=== PATIENT | male | born 1965 | race Caucasian/White ===

== ENCOUNTER 2016-09-27 19:19 | Emergency (ER) | payer MEDICAID, OTHER ==
[2016-09-27 19:28] VITALS: BP 142/91
--- NOTE | 2016-09-27 19:41 | ERNOTE ---
Upper Extremity HPI - General Extremities Pain Location: shoulder: right - pain Time Seen by Provider: 09/27/16 19:34 Source: patient Exam Limitations: no limitations - Immun/Allergies/Home Medications Immunizations: IMMUNIZATION HX Immunizations Up to Date Yes History of Influenza Vaccine No Hx Pneumococcal Vaccination No Allergies/Adverse Reactions: Allergies Allergy/AdvReac Type Severity Reaction Status Date / Time No Known Drug Allergies Allergy Verified 09/27/16 19:29 Home Medications: HOME MEDICATIONS Citalopram Hydrobromide [Citalopram HBr] 40 mg PO DAILY 09/27/16 [Last Taken Unknown] Liraglutide [Victoza 2-Malik] 1.4 mg SQ DAILY 09/27/16 [Last Taken Unknown] Lisinopril [Zestril] 2.5 mg PO DAILY 09/27/16 [Last Taken Unknown] Naproxen [Naprosyn] 500 mg PO BID PRN #20 tablet 09/27/16 [Last Taken Unknown] Omeprazole 20 mg PO DAILY 09/27/16 [Last Taken Unknown] metFORMIN HCL [Glucophage] 1,000 mg PO BIDWM 09/27/16 [Last Taken Unknown] - History of Present Illness Narrative: Here for right shoulder pain for two months. PT has fits of rage where he slams doors and he now has pain in his right shoulder after slamming a door. Review of Systems - Review of Systems Constitutional: Present: no symptoms reported EYE: Present: no symptoms reported ENT: Present: no symptoms reported Respiratory: Present: no symptoms reported Cardiology: Present: no symptoms reported Gastrointestinal/Abdominal: Present: no symptoms reported Genitourinary: Present: no symptoms reported Musculoskeletal: Present: See HPI - Patient's Past Medical History Patient History - Medical: Diabetes Type 2 Patient History - Cardiac/Respiratory: No pertinent hx Patient History - Cancer: No Hx of Cancer Patient History - Surgical Procedures: No surgical history Patient History - Other: None - Social History Living Situations: home Psych History: Hx of Violent Behavior Smoking Status: Never smoker Alcohol Use: rarely Drug Use: none - Immunizations Immunizations Up to Date: Yes Hx Pneumococcal Vaccination: No History of Influenza Vaccine: No Physical Exam - Physical Exam General Appearance: Present: wd/wn, alert, no apparent distress Respiratory: Present: no respiratory distress, normal breath sounds, no accessory muscle use, chest nontender, lungs clear Cardiovascular/Chest: Present: regular rate, rhythm, no murmur, normal peripheral pulses Extremity Exam: Present: other - there appears to be no deformity or step-off on just observing the right shoulder. Patient has pain when he raises his right arm up off of the [place]. I do not see any ecchymoses or deformity. He is tender in the deltoid region. ED Progress - Vital Signs Patient's Vital Signs:: I have reviewed the patient's vital signs. Vital Signs: Vital Signs 09/27/16 19:23 Temperature 36.3 C L Pulse Rate 103 H Respiratory 18 Rate Blood Pressure 142/91 O2 Sat by Pulse 100 Oximetry - X-Ray X-Ray #1 X-Ray: shoulder - Progress/Reassessment Chief Complaint: Shoulder Injury/Pain Plan - Plan Plan: The shoulder x-ray does not reveal an obvious fracture neither does it show a dislocation. I believe this patient has a deltoid bursitis from repeated trauma and slamming things. Departure Clinical Impression: Bursitis of deltoid Qualifiers: Laterality: right Qualified Code(s): M75.51 - Bursitis of right shoulder - Departure Disposition: Home self-care Condition: Good Instructions: Joint Pain Referrals: Rena Cornejo ARNP [Primary Care Provider] - Prescriptions: Naproxen [Naprosyn] 500 mg PO BID PRN #20 tablet PRN Reason: Pain
[2016-09-27] MEDS ORDERED: NAPROXEN SODIUM 550 MG TABLET PO ONE (19:51)
[2016-09-27] MEDS ORDERED: NAPROXEN SODIUM 550 MG TABLET ONE (19:52)
== END 2016-09-27 19:55 | disposition home or self-care (01) ==
LOC: ER 19:19
DX: M75.51 Bursitis of right shoulder (principal); X58.XXXA Exposure to other specified factors, initial encounter; Y93.89 Activity, other specified; Y92.009 Unspecified place in unspecified non-institutional (private) residence as the place of occurrence of the external cause; E11.9 Type 2 diabetes mellitus without complications

== ENCOUNTER 2016-11-15 14:21 | Observation (INO) | payer MEDICAID, OTHER ==
[2016-11-15] MEDS ORDERED: NORMAL SALINE 1,000 ML IV ONE ×4 (15:06→18:59)
[2016-11-15 15:15] LABS: Hematocrit 41.9 % (42.0-52.0); Hemoglobin 15.5 gm/dL (13.5-18.0); Mean Cell Volume 81.7 fl (78-100); Mean Corpuscular Hemoglobin 30.2 pg (27-31); Mean Platelet Volume 9.8 fl (6.0-9.5); Neutrophil # 5.4 K/mm3 (1.3-6.0); Neutrophil % 66.6 % (42-75.0); Platelet Count 260 K/mm3 (150-450); Red Blood Count 5.13 M/mm3 (4.7-6.0); Red Cell Distribution Width 12.3 % (11.5-14.0); White Blood Count 8.1 K/mm3 (4.0-10.5)
[2016-11-15 15:31] LABS: ALT 41 U/L (19-67); AST 43 U/L (0-48); Albumin * 4.1 gm/dl (3.4-5.0); Alkaline Phosphatase * 67 U/L (50-170); Anion Gap 19.4 mmol/L (6.8-13.8); Bilirubin, Total 1.7 mg/dL (0.0-1.1); Blood Urea Nitrogen 24 mg/dL (6-23); Ca. Corrected For Albumin 9.4 mg/dL (8.4-10.2); Calcium * 9.8 mg/dL (7.9-10.9); Carbon Dioxide 24.2 mmol/L (24-32.6); Chloride 95 mmol/L (97-106); Glucose * 319 mg/dL (70-110); Potassium 3.6 mmol/L (3.4-4.6); Sodium 135 mmol/L (132-142); Total Protein 8.3 gm/dL (6.2-8.2)
[2016-11-15 15:33] LABS: Salicylate Less than 2.8 mg/dL (2.8-20.0); Troponin I Less than 0.017 ng/ml (0.00-0.10)
[2016-11-15 16:20] LABS: Urine Bilirubin 1 mg/dl (NEGATIVE); Urine Blood Negative /ul (NEGATIVE); Urine Ketone 15 mg/dL (NEGATIVE); Urine Nitrite Negative (NEGATIVE); Urine Protein 30 mg/dL (NEGATIVE); Urine Specific Gravity >=1.030 SP.GR. (1.005-1.030); Urine Urobilinogen Normal (NORMAL); Urine pH 5.5 pH (5.0-7.0)
[2016-11-15] MEDS ORDERED: LORazepam 2 MG/ML DISP.SYRIN IV ONE ×5 (16:21→20:17)
[2016-11-15] MEDS ORDERED: LORazepam 2 MG/ML DISP.SYRIN ONE ×2 (16:24→18:28)
[2016-11-15] MEDS ORDERED: ACETAMINOPHEN 500 MG TABLET PO ONE (16:27)
[2016-11-15 16:29] LABS: Urine Appearance Clear; Urine Bacteria TRACE; Urine Color Dark Yellow; Urine RBC None Seen /hpf (0-5); Urine WBC 0-5 /hpf (0-5)
[2016-11-15 16:32] LABS: Cocaine Ur Negative (NEGATIVE); Urine Barbiturate Negative (NEGATIVE); Urine Benzodiazepines Negative (NEGATIVE); Urine Opiates Negative (NEGATIVE); Urine PCP Negative (NEGATIVE); Urine THC Negative (NEGATIVE)
[2016-11-15] MEDS ORDERED: diphenhydrAMINE HCL 50 MG/ML VIAL IV ONE ×2 (16:48→17:15)
[2016-11-15] MEDS ORDERED: diphenhydrAMINE HCL 50 MG/ML VIAL ONE ×2 (16:48→17:16)
[2016-11-15 17:23] LABS: CK Total * 1850 U/L (0-259)
--- NOTE | 2016-11-15 18:49 | ERNOTE ---
Medical Problem HPI - Narrative Date of Service: 11/15/16 - General Chief Complaint: General Assessment Time Seen by Provider: 11/15/16 15:02 Source: patient, family Exam Limitations: clinical condition - Immun/Allergies/Home Medications Immunizations: IMMUNIZATION HX Immunizations Up to Date Yes History of Influenza Vaccine No Hx Pneumococcal Vaccination No Allergies/Adverse Reactions: Allergies No Known Drug Allergies Allergy (Verified 09/27/16 19:29) Home Medications: HOME MEDICATIONS Citalopram Hydrobromide [Citalopram HBr] 40 mg PO DAILY 09/27/16 [Last Taken Unknown] Liraglutide [Victoza 2-Malik] 1.4 mg SQ DAILY 09/27/16 [Last Taken Unknown] Lisinopril [Zestril] 2.5 mg PO DAILY 09/27/16 [Last Taken Unknown] Naproxen [Naprosyn] 500 mg PO BID PRN #20 tablet 09/27/16 [Last Taken Unknown] Omeprazole 20 mg PO DAILY 09/27/16 [Last Taken Unknown] metFORMIN HCL [Glucophage] 1,000 mg PO BIDWM 09/27/16 [Last Taken Unknown] - History of Present History Narrative: Patient brought to the ED anxious. Feeling strange. He smoked 50-100 mg of methamphetamine this am. He also smoked methamphetamine yesterday. He does this because he is stressed. 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 He has been feeling poorly since then. Having heart racing generalized weakness, headache and trouble breathing since then. he feels very agitated. No focal weakness. no trauma. Timing: constant, getting worse Modifying Factors - (Improves): Present: other - nothing Modifying Factors - (Worsens): Present: other - nothing Review of Systems - Review of Systems Constitutional: Absent: fever EYE: Present: see HPI Respiratory: Present: shortness of breath Cardiology: Present: chest pain Gastrointestinal/Abdominal: Absent: abdominal pain Genitourinary: Present: decreased urinary output Neurological: Present: headache All Other Systems: All systems neg except as marked - Patient's Past Medical History Patient History - Medical: Diabetes Type 2 Patient History - Cardiac/Respiratory: No pertinent hx Patient History - Cancer: No Hx of Cancer Patient History - Surgical Procedures: No surgical history Patient History - Other: None - Social History Living Situations: home Abuse History: Hx of Substance Use Psych History: Hx of Anxiety, Hx of Depression, Hx of Violent Behavior Smoking Status: Never smoker Have you smoked in the past 12 months: No Do you dip or chew tobacco: No Alcohol Use: rarely Drug Use: meth - Immunizations Immunizations Up to Date: Yes Hx Pneumococcal Vaccination: No History of Influenza Vaccine: No Physical Exam - Physical Exam General Appearance: Present: alert, other - patient agitation, picking at things. jerking but no seizure activity. Head Exam: Present: normal inspection, no evidence of injury Eye Exam: Normal inspection: bilateral, PERRL: bilateral Ears, Nose, Throat: Present: dry mucous membranes. Absent: pharyngeal swelling Neck: Present: normal inspection, supple, other - no meningeal signs Respiratory: Present: no respiratory distress, normal breath sounds, lungs clear Cardiovascular/Chest: Present: normal peripheral pulses, tachycardia Gastrointestinal/Abdominal: Present: normal bowel sounds, nontender, nondistended, soft Back Exam: Present: normal inspection. Absent: CVA tenderness (R), CVA tenderness (L) Extremity Exam: Present: normal inspection, other - no deformity Neurological Exam: Present: other - agitated. No acute focal motor or sensory deficits found Skin Exam: Present: normal color, warm/dry. Absent: skin rash ED Progress - Results and Orders Patient's Lab Results:: I have reviewed the patient's lab results. - Vital Signs Patient's Vital Signs:: I have reviewed the patient's vital signs. Vital Signs: Vital Signs 11/15/16 11/15/16 11/15/16 14:28 15:24 15:52 Temperature 37.5 C 36.4 C L Pulse Rate 130 H 137 H 119 H Respiratory 20 13 22 H Rate Blood Pressure 129/85 110/78 104/66 O2 Sat by Pulse 100 99 100 Oximetry 11/15/16 11/15/16 11/15/16 16:52 17:18 17:46 Temperature Pulse Rate 118 H 112 H 111 H Respiratory 19 24 H 25 H Rate Blood Pressure 103/66 102/60 102/64 O2 Sat by Pulse 95 99 99 Oximetry 11/15/16 18:15 Temperature Pulse Rate 113 H Respiratory 22 H Rate Blood Pressure 94/58 O2 Sat by Pulse 96 Oximetry - EKG EKG read: Interp. by me EKG Comments: Sinus tachycardia rate 132. Non-specific changes, no STEMI. - Progress/Reassessment Chief Complaint: General Assessment Progress Note-Subjective: 11/15/16 18:44 patient received 3L NS. He received 3 mg ativan IV and 50mg benadryl but he still had significant agitation and seemed confused,. This clinically is an agitated delerium, most likely from methamphetamine. Nothing to suggest meningitis or infectious process. Given prolonged observation in the ED he was not improving. Cannot be discharged at this point as he has not returned to normal. D/W Ana Malagon who will admit obs for further evaluation and management. Departure Clinical Impression: Amphetamine intoxication delirium - Departure Disposition: [facility] Condition: Fair
[2016-11-15] MEDS: NORMAL SALINE 1,000 ML IV ONE (20:23)
--- NOTE | 2016-11-15 20:40 | HP ---
Chief Complaint - Chief Complaint Date of Service: 11/15/16 Time of Service: 20:38 Chief Complaint: 'Chest pain, SOB,'. Source of HPI- Pt; unreliable, ERP notes, pts significant other- Stalin. History of Present Illness: Mr. 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 His PMH is significant for: Anxiety, DM II, Erectile dysfunction, GERD & HLD. Pt is unable to provide history because of severe agitation and hallucination, and therefore significant other who goes by Stalin gave most of the information. She states that this morning while at a local grocery store, pt became suddenly SOB , had chest pain and became diaphoretic. He rushed him by personal car from [place] to [facility] ED. 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 She states that last time she saw him abuse drugs was on Tuesday. However, it appears that pt admitted to the ERP when he was still alert at the ED that he smoked about 50- 100mg methamphetamine yesterday and this am. Stalin denies pt complaining of any fevers, n/v,or abdominal pain. At the ED, he was noted to have agitated delirium which did not improve with the Benzodiazepine administration. At the time of physical exam, even though alert, he cannot follow commands, remains in extreme agitation and noted to have hallucinations. Labwork shows he had BUN/CR of 24/1.60 and CK of 1850. He will be admitted for: Rhabdomylosis, DEEPTHI & AMS. - Patient's Past Medical History Patient History - Medical: Diabetes Type 2 Patient History - Cardiac/Respiratory: No pertinent hx Patient History - Cancer: No Hx of Cancer Patient History - Surgical Procedures: No surgical history Patient History - Other: None - Family History Mother Family History - Medical: Other Family History - Cardiac/Respiratory: Other - Social History Living Situations: alone Abuse History: Hx of Substance Use Psych History: Hx of Anxiety, Hx of Depression, Hx of Violent Behavior Smoking Status: Never smoker Have you smoked in the past 12 months: No Do you dip or chew tobacco: No Alcohol Use: rarely Drug Use: meth - Immunizations Immunizations Up to Date: Yes Hx Pneumococcal Vaccination: No History of Influenza Vaccine: No Review Of Systems (GEN) - Review of Systems Additional Comments: ROS unobtainable due to AMS. Immunizations: IMMUNIZATION HX Immunizations Up to Date Yes History of Influenza Vaccine No Hx Pneumococcal Vaccination No Allergies/Adverse Reactions: Allergies Allergy/AdvReac Type Severity Reaction Status Date / Time No Known Drug Allergies Allergy Verified 09/27/16 19:29 Home Medications: HOME MEDICATIONS Citalopram Hydrobromide [Citalopram HBr] 40 mg PO DAILY 09/27/16 [Last Taken Unknown] Lisinopril [Zestril] 2.5 mg PO DAILY 09/27/16 [Last Taken Unknown] Naproxen [Naprosyn] 500 mg PO BID PRN #20 tablet 09/27/16 [Last Taken Unknown] Omeprazole 20 mg PO DAILY 09/27/16 [Last Taken Unknown] metFORMIN HCL [Glucophage] 1,000 mg PO BIDWM 09/27/16 [Last Taken Unknown] Exam - Exam Vital Signs: Vital Signs - Last Taken Temp 36.7 C 11/15/16 19:55 Pulse 114 H 11/15/16 19:55 Resp 16 11/15/16 19:55 BP 108/62 11/15/16 19:39 Pulse Ox 95 11/15/16 19:55 Constitutional: Present: Mild distress, Other - Alert but unable to follow any commands, is very restless, agitated ENT Exam: Present: dry mucous membranes Eye Exam: bilateral eye: normal inspection, PERRL Neck: Present: full range of motion Back Exam: Present: normal inspection Respiratory: Present: lungs clear, No rales, No wheezing Cardiovascular/Chest: Present: normal peripheral pulses, regular rate, rhythm, no edema, no murmur Abdomen: Present: Normal bowel sounds, soft, nontender /Rectal: Present: Exam deferred Extremity: Present: non-tender, normal inspection, no pedal edema Skin Exam: Present: other - Flushing on face. Diagnostic Studies: Laboratory Results WBC 8.1 K/mm3 (4.0-10.5) 11/15/16 15:06 RBC 5.13 M/mm3 (4.7-6.0) 11/15/16 15:06 Hgb 15.5 gm/dL (13.5-18.0) 11/15/16 15:06 Hct 41.9 % (42.0-52.0) L 11/15/16 15:06 MCV 81.7 fl (78-100) 11/15/16 15:06 MCH 30.2 pg (27-31) 11/15/16 15:06 MCHC 37.0 g/dl (32-36) H 11/15/16 15:06 RDW 12.3 % (11.5-14.0) 11/15/16 15:06 Plt Count 260 K/mm3 (150-450) 11/15/16 15:06 MPV 9.8 fl (6.0-9.5) H 11/15/16 15:06 Immature Gran % (Auto) 0.40 % (0.001-0.429) 11/15/16 15:06 Immature Gran # (Auto) 0.03 K/mm3 (0.000-0.0310) 11/15/16 15:06 Neutrophils % 66.6 % (42-75.0) 11/15/16 15:06 Lymphocytes % 22.1 % (20-51) 11/15/16 15:06 Monocytes % 10.2 % (0.0-9) H 11/15/16 15:06 Eosinophils % 0.5 % (0.0-3.0) 11/15/16 15:06 Basophils % 0.2 % (0.0-1.0) 11/15/16 15:06 Nucleated RBC % 0.0 k/mm3 (0-1) 11/15/16 15:06 Neutrophils # 5.4 K/mm3 (1.3-6.0) 11/15/16 15:06 Lymphocytes # 1.8 k/mm3 (1.5-3.5) 11/15/16 15:06 Monocytes # 0.8 k/mm3 (0.0-1.0) 11/15/16 15:06 Eosinophils # 0.0 k/mm3 (0.0-0.7) 11/15/16 15:06 Absolute Basophils 0.0 k/mm3 (0.0-0.1) 11/15/16 15:06 Sodium 135 mmol/L (132-142) 11/15/16 15:06 Plasma Sodium 139 mmol/L (130-142) 11/15/16 15:06 Potassium 3.6 mmol/L (3.4-4.6) 11/15/16 15:06 Chloride 95 mmol/L (97-106) L 11/15/16 15:06 Carbon Dioxide 24.2 mmol/L (24-32.6) 11/15/16 15:06 Anion Gap 19.4 mmol/L (6.8-13.8) H 11/15/16 15:06 BUN 24 mg/dL (6-23) H 11/15/16 15:06 Creatinine 1.60 mg/dL (0.4-1.4) H 11/15/16 15:06 Est GFR (Non-Af Amer) 49 mL/min (60-130) L D 11/15/16 15:06 BUN/Creatinine Ratio 15.0 (9.0-21.6) 11/15/16 15:06 Random Glucose 319 mg/dL (70-110) H 11/15/16 15:06 Calcium 9.8 mg/dL (7.9-10.9) 11/15/16 15:06 Calcium Adj for Albumin 9.4 mg/dL (8.4-10.2) 11/15/16 15:06 Total Bilirubin 1.7 mg/dL (0.0-1.1) H 11/15/16 15:06 AST 43 U/L (0-48) 11/15/16 15:06 ALT 41 U/L (19-67) 11/15/16 15:06 Alkaline Phosphatase 67 U/L (50-170) 11/15/16 15:06 Creatine Kinase 1850 U/L (0-259) H 11/15/16 15:06 Troponin I Less than 0.017 ng/ml (0.00-0.10) 11/15/16 15:06 Total Protein 8.3 gm/dL (6.2-8.2) H 11/15/16 15:06 Albumin 4.1 gm/dl (3.4-5.0) 11/15/16 15:06 TSH 2.691 uIU/mL (0.358-3.74) 11/15/16 15:06 Urine Color Dark yellow 11/15/16 15:34 Urine Appearance Clear 11/15/16 15:34 Urine pH 5.5 pH (5.0-7.0) 11/15/16 15:34 Ur Specific [place] >=1.030 SP.GR. (1.005-1.030) 11/15/16 15:34 Urine Protein 30 mg/dL (NEGATIVE) H 11/15/16 15:34 Urine Glucose (UA) >=1000 mg/dL (NEGATIVE) H 11/15/16 15:34 Urine Ketones 15 mg/dL (NEGATIVE) 11/15/16 15:34 Urine Blood Negative /ul (NEGATIVE) 11/15/16 15:34 Urine Nitrate Negative (NEGATIVE) 11/15/16 15:34 Urine Bilirubin 1 mg/dl (NEGATIVE) H 11/15/16 15:34 Urine Ictotest Negative (NEGATIVE) 11/15/16 15:34 Prot Sulfosalicylic Acd Negative mg/dL (0) 11/15/16 15:34 Urine Urobilinogen Normal EU/dl (NORMAL) 11/15/16 15:34 Ur Leukocyte Esterase Negative /ul (NEGATIVE) 11/15/16 15:34 Urine RBC None seen /hpf (0-5) 11/15/16 15:34 Urine WBC 0-5 /hpf (0-5) 11/15/16 15:34 Ur Epithelial Cells 5-10 /hpf (0-5) H 11/15/16 15:34 Urine Bacteria Trace (NONE) 11/15/16 15:34 Urine Culture Comments No culture indicated 11/15/16 15:34 Salicylates Less than 2.8 mg/dL (2.8-20.0) L 11/15/16 15:06 Urine Opiates Screen Negative (NEGATIVE) 11/15/16 15:34 Acetaminophen Less than 0.2 mcg/mL (10.0-30.0) L 11/15/16 15:06 Barbiturate Screen Negative (NEGATIVE) 11/15/16 15:34 Ur Phencyclidine Scrn Negative (NEGATIVE) 11/15/16 15:34 Urine Amphetamine Positive (NEGATIVE) H 11/15/16 15:34 U Benzodiazepines Scrn Negative (NEGATIVE) 11/15/16 15:34 Urine Cocaine Screen Negative (NEGATIVE) 11/15/16 15:34 Urine Marijuana (THC) Negative (NEGATIVE) 11/15/16 15:34 Ethyl Alcohol Less than 3.0 mg/dL (0.0-10.0) 11/15/16 15:06 Serum Ketones Negative (NEGATIVE) 11/15/16 15:06 Assessment/Plan - Assessment/Plan (1) Amphetamine intoxication delirium Assessment: Pt toxicology screen was positive for Amphetamine only. At the time of physical examination,he is noted to have severe agitation, restlessness,hallucinations. Significant other makes several attempts to control his behaviour by attempting to physically restrain him. His agitation is likely from Amphetamine intoxication & control of violent behaviour is of critical importance for the his safety and for staff and so that he can comply with treatment and monitoring. Will treat the effects of intoxication with Lorazepam 2mg q 10 minutes based upon patient's response and upto a Max dose of 20mg, and thereafter, second generation antipsychotics such as Geodone or Haldol can be added. Will be kept NPO incase he may require intubation to maintain his airway. Will be placed on Continuous POX & Cardiac monitoring. Problem: Acute (2) Rhabdomyolysis Assessment: CK of 1850- likely due to Muscle rigidity and psychomotor agitation from Amphetamine toxicity. Continue with agressive IVF hydration. CK in am. Laboratory Tests 11/15/16 15:06 Creatine Kinase 1850 H Problem: Acute (3) Acute kidney injury Assessment: Likely due increased mascular & neuromuscular activity leading to renal failure and Rhabdomylosis. Will provide IVF hydration. BMP & CK in am. Laboratory Tests 11/15/16 15:06 BUN 24 H Creatinine 1.60 H Creatine Kinase 1850 H Problem: Acute (4) Diabetes Assessment: Accu check q6h, and will switch IVF to D5NS while he is NPO status. Problem: Chronic Qualifiers: Diabetes mellitus type: type 2
[2016-11-15] MEDS: LORazepam 2 MG/ML DISP.SYRIN IV SCH ×10 (20:57→23:16)
[2016-11-16] MEDS: LORazepam 2 MG/ML DISP.SYRIN IV SCH ×16 (00:04→07:05)
[2016-11-16] MEDS: NORMAL SALINE 1,000 ML IV ONE (02:30)
[2016-11-16] MEDS: NORMAL SALINE 1,000 ML IV PRN ×4 (02:39→20:34)
--- NOTE | 2016-11-16 06:15 | PN ---
Subjective - Date and Time Seen Date: 11/16/16 Time: 06:12 Subjective Narrative: Pt examined this am. Speech is slurry. Noted to have slight muscular excitation. Required at total of 6 mg of IV ativan to control agitation and restlessness. No other issues according to nursing. Objective - Vitals Vitals: Last Vital Signs Temp 34.6 C L 11/16/16 02:46 Pulse 88 11/16/16 03:00 Resp 20 11/16/16 02:46 BP 118/77 11/16/16 02:46 Pulse Ox 99 11/16/16 02:46 - Exam Constitutional: Present: Alert, Cooperative ENT Exam: Present: normal ENT inspection, dry mucous membranes Neck: Present: full range of motion, supple Breasts: Present: Exam deferred Respiratory: Present: lungs clear, No rales Cardiovascular/Chest: Present: normal peripheral pulses, regular rate, rhythm, no chest tenderness, no edema Abdomen: Present: Normal bowel sounds, soft, nontender /Rectal: Present: Exam deferred Extremity: Present: normal range of motion, non-tender, normal inspection Skin Exam: Present: warm/dry, no cyanosis Lymphatic: Present: no adenopathy Neurologic: Present: alert, other - slurry speech.. Absent: no motor/sensory deficits, dizzy/light-headedness Appearance: Present: impaired insight Eye contact: Present: decreased rate of speech, other Thoughts: Present: no apparent hallucination, incoherent Assessment/Plan - Problems/Diagnosis (1) Amphetamine intoxication delirium Problem: Acute Narrative: Pt toxicology screen was positive for Amphetamine only. At the time of physical examination,he is noted to have severe agitation, restlessness,hallucinations. Significant other makes several attempts to control his behaviour by attempting to physically restrain him. His agitation is likely from Amphetamine intoxication & control of violent behaviour is of critical importance for the his safety and for staff and so that he can comply with treatment and monitoring. Will treat the effects of intoxication with Lorazepam 2mg q 10 minutes based upon patient's response and upto a Max dose of 20mg, and thereafter, second generation antipsychotics such as Geodone or Haldol can be added. Will be kept NPO incase he may require intubation to maintain his airway. Will be placed on Continuous POX & Cardiac monitoring. (2) Rhabdomyolysis Problem: Acute Narrative: CK of 1850- likely due to Muscle rigidity and psychomotor agitation from Amphetamine toxicity. Continue with aggressive IVF hydration. CK in am. (3) Acute kidney injury Problem: Acute Narrative: Likely due increased mascular & neuromuscular activity leading to renal failure and Rhabdomylosis. Will provide IVF hydration. BMP & CK in am. Laboratory Tests 11/15/16 15:06 BUN 24 H Creatinine 1.60 H Creatine Kinase 1850 H (4) Diabetes Problem: Chronic Qualifiers: Diabetes mellitus type: type 2 Narrative: Accu check q6h, and will switch IVF to D5NS while he is NPO status.
[2016-11-16 06:46] LABS: Anion Gap 9.8 mmol/L (6.8-13.8); Calcium * 7.6 mg/dL (7.9-10.9); Carbon Dioxide 28.6 mmol/L (24-32.6); Estimated Creat Clear 90.6; Potassium 3.4 mmol/L (3.4-4.6)
[2016-11-16] MEDS ORDERED: OMEPRAZOLE 20 MG CAPSULE.SA PO SCH (07:00)
[2016-11-16] MEDS: PANTOPRAZOLE SODIUM 20 MG TABLET.DR PO SCH ×2 (07:04→09:34)
[2016-11-16] MEDS: LISINOPRIL 2.5 MG TABLET PO SCH (09:33)
[2016-11-16] MEDS: LORazepam 2 MG/ML DISP.SYRIN IV PRN ×3 (10:43→21:13)
--- NOTE | 2016-11-16 19:43 | CONS ---
HPI - General Date of Service: 11/16/16 Narrative: I then talked to two of Puneet's adult children: They label Stalin "poison " and they want to have POA so that their father can live with them. - History of Present Illness Allergies/Adverse Reactions: Allergies No Known Drug Allergies Allergy (Verified 09/27/16 19:29) Home Medications: Home Medications Medication Instructions Recorded Last Taken Citalopram Hydrobromide 40 mg PO DAILY 09/27/16 Unknown [Citalopram HBr] Lisinopril [Zestril] 2.5 mg PO DAILY 09/27/16 Unknown Omeprazole 20 mg PO DAILY 09/27/16 Unknown metFORMIN HCL [Glucophage] 1,000 mg PO BIDWM 09/27/16 Unknown - Patient's Past Medical History Patient History - Medical: Diabetes Type 2 Patient History - Cardiac/Respiratory: No pertinent hx Patient History - Cancer: No Hx of Cancer Patient History - Surgical Procedures: No surgical history Patient History - Other: None - Family History Mother Family History - Medical: Other Family History - Cardiac/Respiratory: Other - Social History Living Situations: alone Abuse History: Hx of Substance Use Psych History: Hx of Anxiety, Hx of Depression, Hx of Violent Behavior Smoking Status: Never smoker Have you smoked in the past 12 months: No Do you dip or chew tobacco: No Alcohol Use: rarely Drug Use: meth - Immunizations Immunizations Up to Date: Yes Hx Pneumococcal Vaccination: No History of Influenza Vaccine: No Medications - Medications Current Medications: Current Medications Sodium Chloride (Sodium Chloride 0.9%) 1,000 mls @ 200 mls/hr IV .Q5H PRN PRN Reason: HYDRATION Stop: 12/16/16 02:30 Last Admin: 11/16/16 15:32 Dose: 200 mls/hr Lisinopril (Zestril) 2.5 mg PO DAILY LATHA Stop: 12/16/16 09:01 Last Admin: 11/16/16 09:33 Dose: 2.5 mg Lorazepam (Ativan) 2 mg IV Q10M PRN PRN Reason: Anxiety Stop: 12/15/16 21:01 Last Admin: 11/16/16 15:33 Dose: 2 mg Metformin HCl (Glucophage) 1,000 mg PO BIDWM LATHA Stop: 12/16/16 09:01 Last Admin: 11/16/16 17:52 Dose: 1,000 mg Pantoprazole Sodium (Protonix) 20 mg PO QDAC LATHA Stop: 12/16/16 07:01 Last Admin: 11/16/16 09:34 Dose: 20 mg Physical Examination - Exam Vital Signs: Vital Signs - Last Taken Temp 36.2 C L 11/16/16 15:00 Pulse 93 11/16/16 15:00 Resp 20 11/16/16 15:00 BP 122/70 11/16/16 15:00 Pulse Ox 99 11/16/16 15:00 O2 Oxygen Delivery Method Room Air - Results and Findings: Lab/Microbiology results last 24 hrs: Abnormal/Pending Laboratory Last 24 HRS 11/16/16 06:12 Plasma Sodium 143 H Random Glucose 197 H D Calcium 7.6 L Creatine Kinase 1258 H
[2016-11-17] MEDS: NORMAL SALINE 1,000 ML IV PRN (04:16)
[2016-11-17 05:18] LABS: Hematocrit 34.7 % (42.0-52.0); Hemoglobin 12.1 gm/dL (13.5-18.0); Mean Corpuscular Hemoglobin 30.3 pg (27-31); Mean Corpuscular Hgb Conc 34.9 g/dl (32-36); Mean Platelet Volume 9.4 fl (6.0-9.5); Neutrophil # 2.6 K/mm3 (1.3-6.0); Platelet Count 154 K/mm3 (150-450); Red Blood Count 3.99 M/mm3 (4.7-6.0); Red Cell Distribution Width 12.6 % (11.5-14.0); White Blood Count 4.1 K/mm3 (4.0-10.5)
[2016-11-17 05:28] LABS: Anion Gap 15.2 mmol/L (6.8-13.8); BUN/Creatinine Ratio 14.6 (9.0-21.6); Calcium * 7.8 mg/dL (7.9-10.9); Carbon Dioxide 25.2 mmol/L (24-32.6); Estimated Creat Clear 99.1; Potassium 3.4 mmol/L (3.4-4.6)
[2016-11-17] MEDS: PANTOPRAZOLE SODIUM 20 MG TABLET.DR PO SCH (06:45)
[2016-11-17] MEDS: LISINOPRIL 2.5 MG TABLET PO SCH (08:17)
--- NOTE | 2016-11-17 08:22 | PN ---
Progess Note - Interim Narrative: 11/17/16 08:22 Possible discharge today. Will talk to Dr. Julien.
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
--- NOTE | 2016-11-17 11:20 | CONS ---
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 , his attending Physician. BACKGROUND HISTORY Sources of Information: 1-Our [facility] file 2-Dr. Chin 3-Stalin, his live-in [facility] 4-His two children from both previous marriages: Ninoska and Darian 5-Admitting notes by Hospitalist 6-ER admission note 7-RN in charge of his case - History of Present Illness Allergies/Adverse Reactions: Allergies No Known Drug Allergies Allergy (Verified 09/27/16 19:29) Home Medications: Home Medications Medication Instructions Recorded Last Taken Citalopram Hydrobromide 40 mg PO DAILY 09/27/16 Unknown [Citalopram HBr] Lisinopril [Zestril] 2.5 mg PO DAILY 09/27/16 Unknown Omeprazole 20 mg PO DAILY 09/27/16 Unknown metFORMIN HCL [Glucophage] 1,000 mg PO BIDWM 09/27/16 Unknown - Patient's Past Medical History Patient History - Medical: Diabetes Type 2 Patient History - Cardiac/Respiratory: No pertinent hx Patient History - Cancer: No Hx of Cancer Patient History - Surgical Procedures: No surgical history Patient History - Other: None - Family History Mother Family History - Medical: Other Family History - Cardiac/Respiratory: Other - Social History Living Situations: alone Abuse History: Hx of Substance Use Psych History: Hx of Anxiety, Hx of Depression, Hx of Violent Behavior Smoking Status: Never smoker Have you smoked in the past 12 months: No Do you dip or chew tobacco: No Alcohol Use: rarely Drug Use: meth - Immunizations Immunizations Up to Date: Yes Hx Pneumococcal Vaccination: No History of Influenza Vaccine: No Medications - Medications Current Medications: Current Medications Sodium Chloride (Sodium Chloride 0.9%) 1,000 mls @ 125 mls/hr IV .Q8H PRN PRN Reason: HYDRATION Stop: 12/16/16 02:30 Last Admin: 11/17/16 04:16 Dose: 200 mls/hr Lisinopril (Zestril) 2.5 mg PO DAILY LATHA Stop: 12/16/16 09:01 Last Admin: 11/17/16 08:17 Dose: 2.5 mg Lorazepam (Ativan) 2 mg IV Q10M PRN PRN Reason: Anxiety Stop: 12/15/16 21:01 Last Admin: 11/16/16 21:13 Dose: 2 mg Metformin HCl (Glucophage) 1,000 mg PO BIDWM [facility] Stop: 12/16/16 09:01 Last Admin: 11/17/16 08:18 Dose: 1,000 mg Pantoprazole Sodium (Protonix) 20 mg PO QDAC [facility] Stop: 12/16/16 07:01 Last Admin: 11/17/16 06:45 Dose: 20 mg Physical Examination - Exam Vital Signs: Vital Signs - Last Taken Temp 36.6 C 11/17/16 10:00 Pulse 79 11/17/16 10:00 Resp 18 11/17/16 10:00 BP 126/76 11/17/16 10:00 Pulse Ox 100 11/17/16 10:00 O2 Oxygen Delivery Method Room Air - Results and Findings: Lab/Microbiology results last 24 hrs: Abnormal/Pending Laboratory Last 24 HRS 11/17/16 11/17/16 05:05 05:05 RBC 3.99 L Hgb 12.1 L Hct 34.7 L Immature Gran % (Auto) 0.50 H Eosinophils % 3.4 H Lymphocytes # 1.0 L Sodium 144 H Plasma Sodium 146 H Chloride 107 H Anion Gap 15.2 H Random Glucose 198 H Calcium 7.8 L Creatine Kinase 478 H
--- NOTE | 2016-11-17 12:06 | CONS ---
HPI - History of Present Illness Allergies/Adverse Reactions: Allergies No Known Drug Allergies Allergy (Verified 09/27/16 19:29) Home Medications: Home Medications Medication Instructions Recorded Last Taken Citalopram Hydrobromide 40 mg PO DAILY 09/27/16 Unknown [Citalopram HBr] Lisinopril [Zestril] 2.5 mg PO DAILY 09/27/16 Unknown Omeprazole 20 mg PO DAILY 09/27/16 Unknown metFORMIN HCL [Glucophage] 1,000 mg PO BIDWM 09/27/16 Unknown - Patient's Past Medical History Patient History - Medical: Diabetes Type 2 Patient History - Cardiac/Respiratory: No pertinent hx Patient History - Cancer: No Hx of Cancer Patient History - Surgical Procedures: No surgical history Patient History - Other: None - Family History Mother Family History - Medical: Other Family History - Cardiac/Respiratory: Other - Social History Living Situations: alone Abuse History: Hx of Substance Use Psych History: Hx of Anxiety, Hx of Depression, Hx of Violent Behavior Smoking Status: Never smoker Have you smoked in the past 12 months: No Do you dip or chew tobacco: No Alcohol Use: rarely Drug Use: meth - Immunizations Immunizations Up to Date: Yes Hx Pneumococcal Vaccination: No History of Influenza Vaccine: No Medications - Medications Current Medications: Current Medications Sodium Chloride (Sodium Chloride 0.9%) 1,000 mls @ 125 mls/hr IV .Q8H PRN PRN Reason: HYDRATION Stop: 12/16/16 02:30 Last Admin: 11/17/16 04:16 Dose: 200 mls/hr Lisinopril (Zestril) 2.5 mg PO DAILY [facility] Stop: 12/16/16 09:01 Last Admin: 11/17/16 08:17 Dose: 2.5 mg Lorazepam (Ativan) 2 mg IV Q10M PRN PRN Reason: Anxiety Stop: 12/15/16 21:01 Last Admin: 11/16/16 21:13 Dose: 2 mg Metformin HCl (Glucophage) 1,000 mg PO BIDWM [facility] Stop: 12/16/16 09:01 Last Admin: 11/17/16 08:18 Dose: 1,000 mg Pantoprazole Sodium (Protonix) 20 mg PO QDAC [facility] Stop: 12/16/16 07:01 Last Admin: 11/17/16 06:45 Dose: 20 mg Physical Examination - Exam Narrative: INTERVIEW AND CONCLUSIONS I interviewed this patient twice in one night after I interviewed his fiancee. Then I interviewed his two children and this interview really made everything topsy-turvy because of the vitriol they expressed about how "poisonous or toxic she is to our father. She enables him and we know he will never be helped as long as she keeps being his enabler and continues to supply him with Meth. We know our Dad likes you very much and want to see you as an outpatient and we are all in favor of it, too, but you also said that the 83% chance of his total recovery hinge upon: 1-His changing his environment and all of his drug using friends 2-That he should live with either of us so that we can take him to your sessions and have custody of his medications and personally supervise his taking them faithfully every day. We are both willing to do that when he is medically stable enough to be discharged to our care. We shall call you after you call us to declare him fit to be discharged." DIAGNOSES 1-Pathological bereavement 2-Polysubstance abuse , especially Methamphetamine abuse 3-Bipolar affective disorder 4-Borderline personality disorder 5-Family disruption and family problem 6-Uncontrolled Diabetes Mellitus Type II Recommended daily medications to be taken only at supper: 1-Naltrexone 2-Antabuse 3-Topamax Vital Signs: Vital Signs - Last Taken Temp 36.6 C 11/17/16 10:00 Pulse 79 11/17/16 10:00 Resp 18 11/17/16 10:00 BP 126/76 11/17/16 10:00 Pulse Ox 100 11/17/16 10:00 O2 Oxygen Delivery Method Room Air - Results and Findings: Lab/Microbiology results last 24 hrs: Abnormal/Pending Laboratory Last 24 HRS 11/17/16 11/17/16 05:05 05:05 RBC 3.99 L Hgb 12.1 L Hct 34.7 L Immature Gran % (Auto) 0.50 H Eosinophils % 3.4 H Lymphocytes # 1.0 L Sodium 144 H Plasma Sodium 146 H Chloride 107 H Anion Gap 15.2 H Random Glucose 198 H Calcium 7.8 L Creatine Kinase 478 H
--- NOTE | 2016-11-17 13:50 | DS ---
(1) Acute kidney injury Problem: Resolved (2) Amphetamine intoxication delirium Problem: Resolved (3) Rhabdomyolysis Diagnosis(s): improved Problem: Acute (4) Diabetes Problem: Chronic Qualifiers: Diabetes mellitus type: type 2 Description of Stay: Mr. Parker is a 51-yr-old WM pt of Rena Pimentel, an RUG CLEANER in [place] who was admitted on 11/15/2016 for agiatation and hallucination. . His PMH is significant for: Anxiety, DM II, Erectile dysfunction, GERD & HLD. Pt is unable to provide history because of severe agitation and hallucination, and therefore significant other who goes by Stalin gave most of the information. She states that on the morning of admission while at a local grocery store, pt became suddenly SOB, had chest pain and became diaphoretic. He rushed him by personal car from [place] to [facility] ED. 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 She states that last time she saw him abuse drugs was on Tuesday. However, it appears that pt admitted to the ERP when he was still alert at the ED that he smoked about 50-100mg methamphetamine yesterday and this am. Stalin denies pt complaining of any fevers, n/v,or abdominal pain. At the ED, he was noted to have agitated delirium which did not improve with the Benzodiazepine administration. At the time of physical exam, even though alert, he could not follow commands, remained in extreme agitation and noted to have hallucinations. Labwork shows he had BUN/CR of 24/1.60 and CK of 1850. He will be admitted for: Rhabdomylosis, DEEPTHI & AMS. He was started on aggressive IVF hydration and given IV ativan to contorl his agitation and hallucinations. His DEEPTHI resolved. Psychiatric consultation was done. He is now stable to go home and to follow up with his Dr. Julien. His CK has gone down significantly. He will follow up with is PCP-Rena Pimentel. Procedures Performed: none Discharge Disposition: Home self care Disposition: Home self-care Condition: Stable Discharge Activity: Activity as tolerated Discharge Diet: Consistent carbs Referrals: Rena Cornejo ARNP [Primary Care Provider] - Problem Oriented Discharge Instructions to Patient/Family: Acute Kidney Injury Additional Patient Instructions (free text): Follow up with Dr. Julien on November 19 at 11. Please come at 10:30 with packet filled out. Follow up with Rena Cornejo on November 25 at 11:15. Complete Home Medications List: Complete Home Medication List: Citalopram Hydrobromide [Citalopram HBr] 40 mg PO DAILY 09/27/16 Lisinopril [Zestril] 2.5 mg PO DAILY 09/27/16 Omeprazole 20 mg PO DAILY 09/27/16 metFORMIN HCL [Glucophage] 1,000 mg PO BIDWM 09/27/16
[2016-11-17 15:00] VITALS: BP 131/73
== END 2016-11-17 15:15 | disposition home or self-care (01) ==
LOC: ER 14:21 → UNDOADMOB 18:35 → MS 18:35
PROVIDERS: ADMIT Nurse Practitioner Critical Care Medicine; ATTEND Internal Medicine
DX: F15.921 Other stimulant use, unspecified with intoxication delirium (principal); N17.9 Acute kidney failure, unspecified; M62.82 Rhabdomyolysis; E11.9 Type 2 diabetes mellitus without complications; F41.8 Other specified anxiety disorders; K21.9 Gastro-esophageal reflux disease without esophagitis; E78.5 Hyperlipidemia, unspecified; F31.9 Bipolar disorder, unspecified; Z63.4 Disappearance and death of family member; F60.3 Borderline personality disorder
CPT/HCPCS: 36415; 70450; 71020; 80048; 80053; 80307; 81001; 82009; 82550; 84443; 84484; 85025; 93005; 96374; 96375; 96376; 99284; G0378; G0480; G0481